=== PATIENT | female | born 1940 | race Caucasian/White ===

== ENCOUNTER → 2017-08-21 | Outpatient (CLI) | payer MEDICARE ==
[~2017-08-21] MED LIST: AMIO400T5 PO; ASPI-496 PO; ATEN25TA PO; CALC-148 PO; CARB1DRO13 EACHEYE; CHOL2000 PO; CYCL1DRO EACHEYE; DIGO125T PO; DOCU-131 PO; FLUT1DIS IH; FURO-92 PO; HYDR-3240 PO; METO25TA35 PO; MULT-26 PO; OMEG1200 PO; OMEP40CA6 PO; POTA20TA91 PO; RIVA15TA PO; SIMV10TA3 PO; TIOT18CA INH; VIT1TABL32 PO; WARF10TA PO
== END ==
LOC: CFH 12:43
PROVIDERS: ATTEND Internal Medicine Cardiovascular Disease
DX: I08.1 Rheumatic disorders of both mitral and tricuspid valves (principal); I49.3 Ventricular premature depolarization; E78.5 Hyperlipidemia, unspecified; Z87.891 Personal history of nicotine dependence; Z95.3 Presence of xenogenic heart valve
CPT/HCPCS: 93306

== ENCOUNTER → 2018-09-27 | Outpatient (CLI) | payer MEDICARE | END | disposition home or self-care (01) | LOC: CFH 10:03 | PROVIDERS: ATTEND Physician Assistant Medical | DX: I08.8 Other rheumatic multiple valve diseases (principal); Z95.2 Presence of prosthetic heart valve; Z87.891 Personal history of nicotine dependence | CPT/HCPCS: 93306 ==

== ENCOUNTER 2020-07-16 06:41 | Outpatient (CLI) | payer MEDICARE ==
[~2020-07-16 06:41] MED LIST changes: -DIGO125T PO; +DIGO125T85 PO; +HYDR-1067 PO; -HYDR-3240 PO; +OMEP40CA42 PO; -OMEP40CA6 PO; +SIMV10TA18 PO; -SIMV10TA3 PO
== END 2020-07-16 23:59 | disposition home or self-care (01) ==
LOC: CFH 06:41
PROVIDERS: ATTEND Internal Medicine Cardiovascular Disease
DX: I08.8 Other rheumatic multiple valve diseases (principal); R06.00 Dyspnea, unspecified; Z95.2 Presence of prosthetic heart valve
CPT/HCPCS: 78452; 93017; 93306; A9502